=== PATIENT | female | born 1945 | race Caucasian/White ===

== ENCOUNTER 2016-06-16 05:06 | Inpatient (IN) | payer OTHER, MEDICARE ==
[2016-06-11 10:45] LABS: HEMATOCRIT 39.8 % (37.0-47.0); HEMOGLOBIN 13.5 gm/dL (12.0-15.0); MCHC 33.8 % (28.0-37.0); MCV 94.5 fL (80.0-100.0); RBC 4.21 mil/uL (4.20-5.00); RDW 13.7 % (10.5-14.5); WBC 8.5 thou/uL (4.0-11.0)
[2016-06-11 10:52] LABS: URINE BILIRUBIN NEGATIVE (Negative); URINE BLOOD NEGATIVE (Negative); URINE COLOR YELLOW; URINE GLUCOSE-RANDOM* NEGATIVE (Negative); URINE KETONES NEGATIVE (Negative); URINE LEUKOCYTES-REFLEX 2+ (Negative); URINE PROTEIN (DIPSTICK) NEGATIVE (Negative); URINE SPECIFIC GRAVITY <= 1.005 (1.003-1.035); URINE UROBILINOGEN 0.2 E.U./dl (0.2-1.0)
[2016-06-11 10:57] LABS: CASTS None Seen /LPF (None Seen); CRYSTALS None Seen /LPF (None Seen); SQUAMOUS 0-3 Few /LPF (0-3); URINE RBC None Seen /HPF (0-2); URINE WBC-REFLEX 6-15 Few /HPF (0-5)
[2016-06-11 10:59] LABS: APTT 26.1 Seconds (24.5-32.8); PROTIME 10.3 Seconds (9.3-11.4)
[2016-06-11 11:05] LABS: CALCIUM 9.7 mg/dL (8.5-10.1); CREATININE 1.2 mg/dL (0.6-1.3); POTASSIUM 4.6 mmol/L (3.5-5.1); TOTAL BILIRUBIN 0.3 mg/dL (<0.1-1.0); TOTAL PROTEIN 7.8 g/dL (6.4-8.2)
[~2016-06-16] VITALS: Ht 160 cm; Wt 79.4 kg
[2016-06-16] VITALS (9 sets, daily range): BP systolic 87–133; BP diastolic 45–78
--- NOTE | ~2016-06-16 | O ---
[facility] [place] [address] OPERATIVE REPORT Name: ANICETO GARCIA JOEY Room #: 247-P [facility] IN M.R.#: [id number] Admission: 06/16/16 Attend Phys: Uziel Jimenez MD Discharge: 06/18/16 Date of : 47 Report #: [id number] THIS REPORT FOR: //name// CC: WANDA physician/PCP Uziel Jimenez DATE OF SERVICE: 06/16/2016 PREOPERATIVE DIAGNOSIS: Right carotid artery stenosis. POSTOPERATIVE DIAGNOSIS: Right carotid artery stenosis. OPERATION: Right carotid endarterectomy with patch closure. SURGEON: Uziel Jimenez MD. INFORMATION TECHNOLOGY AUDITOR: Daniele. ANESTHESIA: General. INDICATIONS: The patient is a 70-year-old with high-grade right internal carotid stenosis. This is a 90% lesion at the carotid bifurcation, it is asymptomatic. The left carotid has a 60% lesion that is asymptomatic. FINDINGS AND TECHNIQUE: After general anesthesia was established, exposure was obtained through an oblique right neck incision. Common facial vein was divided. Common internal and external carotid arteries were identified and controlled and 10,000 units of heparin were given. Continuous electroencephalographic monitoring was performed during the operation when the carotid vessels were occluded. No EEG changes were noted. The carotid arteriotomy was made. Endarterectomy was performed without creating a distal flap. Neointima was inspected and all loose debris was removed. Tacking sutures were placed at the transition zone. When the endarterectomy was deemed satisfactory, the arteriotomy was closed with thin walled pericardial patch and running Prolene. Prior to finishing the closure, the carotid vessels were backbled and then, the arteriotomy was flushed with heparinized saline. Flow was established first through the external, then the internal carotid artery. 50 mg of protamine was given to reverse the heparin. When hemostasis was satisfactory, wound was irrigated with antibiotic solution. Kalyani drain was brought out through the bottom pole of the incision and the wound was closed in layers with interrupted Vicryl for the platysma and running Monocryl for the [facility] [address] [place] [address] OPERATIVE REPORT Name: ANICETO GARCIA [facility] Room #: [facility] IN .R.#: [id number] Admission: 06/16/16 Attend Phys: Uziel Jimenez MD Discharge: 06/18/16 Date of : 47 Report #: [id number]. The patient tolerated the procedure well and was taken to the recovery area where her neurologic progress was monitored. All counts reported as correct. <ELECTRONICALLY SIGNED> By: Uziel Jimenez MD 06/29/16 1224 [id number] 1520 Uziel Jimenez MD /nt
--- NOTE | ~2016-06-16 | H ---
[facility] [place] [address] HISTORY AND PHYSICAL Name: ANICETO GARCIA Room #: 247-P DIS IN M.R.#: [id number] Admission: 06/16/16 Attend Phys: Uziel Jimenez MD Discharge: 06/18/16 Date of : 47 Report #: [id number] THIS REPORT FOR: //name// For History and Physical, please see office documentation/handwritten note in the patient's medical record. <ELECTRONICALLY SIGNED> By: Uziel Jimenez MD 06/29/16 1224 1552 Uziel Jimenez MD /
--- NOTE | ~2016-06-16 | S ---
[facility] [place] [address] SURGICAL PATH RPT PROCEDURE Name: PEYTON REESE JOEY Room #: 247-P DIS IN M.R.#: [id number] Admission: 06/16/16 Date of : 47 Discharge: 06/18/16 Report #: [id number] Path Case #: [id number] PATHOLOGY REPORT COLLECTION DATE: 06/16/2016 RECEIVED DATE: 06/16/2016 SUBMITTING PHYS: Dr. Uziel Jimenez OTHER PHYS: SPECIMEN(S) RECEIVED: A.Right carotid plaque B.Cervical lymph node * * * * * * * * * * * * FINAL DIAGNOSIS: A. Portion of vessel "right carotid plaque": - Calcified atherosclerotic plaque. B. Lymph node "cervical lymph node": - Reactive lymphoid follicular hyperplasia. - There is no definite evidence of malignancy. COMMENT: This case is also reviewed by Dr. Lisa Lutz. (SHA:all; d/t: 06/18/2016) PATHOLOGIST: Jacinto Boland M.D. REPORT ELECTRONICALLY SIGNED BY: Jacinto Boland M.D. DATE/TIME: 06/18/2016 10:12 * * * * * * * * * * * * GROSS PATHOLOGY: A. The specimen is received in formalin labeled "Peyton Reese, right carotid plaque". Received is a tubular segment of yellow-sullivan, partially calcified plaque measuring 2.0 cm in length by 0.9 cm in diameter. The specimen is submitted representatively in cassette A1, following light decalcification. B. The specimen is received in formalin labeled "Peyton Reese, cervical lymph node". Received is a segment of yellow-sullivan lobulated tissue measuring 2.2 x 1.6 x 1.0 cm in greatest dimensions. Dissection and palpation the specimen reveals two lymph nodes measuring 0.9 and 1.4 cm in maximum dimensions. The lymph nodes are submitted entirely in cassette B1. (CAA; 06/17/2016) CLINICAL HISTORY: [facility] [place] [address] SURGICAL PATH RPT PROCEDURE Name: PEYTON REESE JOEY Room #: 247-P [facility] IN M.R.#: [id number] Admission: 06/16/16 Date of : 47 Discharge: 06/18/16 Report #: [id number] Path Case #: [id number] Carotid artery disease INITIAL CPT CODE(S): A; 69037, 00866 B; 77403 Professional services performed by [facility] at [address] , [place] [address] Technical services performed by [facility] at [address] [place] [address], [facility] [address], [place] [address]. [facility] [place] [address] PHONE: [phone] DIRECTOR: Long Umanzor M.D. * * * END OF REPORT * * *
--- NOTE | ~2016-06-16 | HC ---
[facility] [place] [address] CONSULTATION Name: ANICETO GARCIA JOEY Room #: 247-P [facility] IN M.R.#: [id number] Admission: 06/16/16 Attend Phys: Uziel Jimenez MD Discharge: 06/18/16 Date of : 47 Report #: [id number] THIS REPORT FOR: //name// CC: WANDA physician/PCP Uziel Jimenez DATE OF SERVICE: 06/16/2016 The patient was seen for consultation on 06/16/2016. REQUESTING PHYSICIAN: Uziel Ratliff M.D. REASON FOR CONSULTATION: Medical management. HISTORY OF PRESENT ILLNESS: The patient is a 70-year-old female with history of right carotid stenosis, who underwent elective right carotid endarterectomy today. The patient is recovering well after the procedure. She has minor postop pain, this is controlled with current medications. The patient has history of mild diabetes mellitus type 2. She is on metformin for this. She does not recall her hemoglobin A1c recently, but she states that her blood sugars are usually less than 150 at home. Indeed, the patient's blood sugars have been between 125 and 132, while the patient is here. The patient is hemodynamically stable and afebrile. She denies blurry vision, headaches, chest pain, palpitations or shortness of breath. The patient denies history of coronary artery disease. The patient also has a history of hypertension, which she considers is well controlled. So far, the patient has been hemodynamically stable and afebrile. PAST MEDICAL HISTORY: 1. Hypertension. 2. Depression. 3. Mild diabetes mellitus type 2. 4. Peripheral vascular disease, right carotid stenosis as above. CURRENT MEDICATIONS: Reviewed and documented in the patient's chart. FAMILY HISTORY: Reviewed and not pertinent to the patient's current condition. SOCIAL HISTORY: The patient is a former smoker. She does not drink alcohol. REVIEW OF SYSTEMS: As above in HPI section, all others negative. PHYSICAL EXAMINATION: [facility] [address] [place] [address] CONSULTATION Name: ANICETO GARCIA [facility] Room #: [address] [place] [address] IN M.R.#: [id number] Admission: 06/16/16 Attend Phys: Uziel Jimenez MD Discharge: 06/18/16 Date of : 47 Report #: [id number] GENERAL: The patient is healthy looking elderly female who is in no apparent distress. VITAL SIGNS: Blood pressure is 102/49, from 133/78 earlier. Heart rate is 59, respiration is 15 and temperature is 97.6. HEENT: Pupils are equal. Eye movements are normal. The patient has anicteric sclerae. NECK: Supple. She has no thyromegaly. Site of the right carotid endarterectomy is covered with dressing. CARDIOVASCULAR: The patient has regular rhythm and rate. She has no murmurs, gallops or rubs. RESPIRATORY: Chest moves symmetrically with breathing. Breath sounds are normal bilaterally. GASTROINTESTINAL: Soft, nondistended, and nontender. Bowel sounds are present. The patient has no hepatomegaly or splenomegaly. MUSCULOSKELETAL: There is no edema, cyanosis or clubbing. NEUROLOGIC: Grossly intact. The patient is alert and oriented x 3. SKIN: The patient has no skin lesions. Skin is dry and warm. LABORATORY DATA: Basic metabolic profile and the liver function tests are essentially normal. CBC is completely normal. Urinalysis shows between 6 and 15 white cells, and present bacteria. Nitrite is negative. Leukocyte esterase is positive. ASSESSMENT AND PLAN: 1. Status post right carotid endarterectomy earlier today. The patient is recovering well, and she is managed by primary team. 2. Diabetes mellitus type 2, mild. Blood sugars are mostly acceptable. The patient can be resumed on metformin. There is no need for frequent Accu-Cheks or sliding scale insulin. 3. Hypertension. The patient's home blood pressure medications have been resumed. She is on amlodipine, and spironolactone at this time. We will hold amlodipine, given patient's borderline low blood pressure. 4. Mild urinary tract infection. We will submit urine for culture, and we will treat the patient with Cipro. We will continue to follow the patient during the hospitalization and will provide further recommendations. Once again, we appreciate the opportunity of participating in the care of your patients. <ELECTRONICALLY SIGNED> By: Wilbert Humphrey MD 06/18/16 1638 1733 1837 Wilbert Humphrey MD /nt
[~2016-06-16 05:06] MED LIST: ALDACTONE25 MG PO; ASPIRIN PO; CADUET 5 MG-401 EACH PO; GLUCOPHAGE500 MG PO; LEXAPRO20 MG PO; LIPITOR40 MG PO; NORVASC2.5 MG PO; OMEPRAZOLE 20 M20 M1 PO; PLAVIX 75 MG TA75 MG PO; PREMARIN PO; SIMVASTATIN40 MG PO; VITAMIN D1000 UNIT PO; ZETIA10 MG PO; ZOLOFT PO
[2016-06-17] VITALS (21 sets, daily range): BP systolic 95–136; BP diastolic 47–91
[2016-06-17 06:55] LABS: HEMATOCRIT 30.7 % (37.0-47.0); HEMOGLOBIN 10.3 gm/dL (12.0-15.0); MCH 32.3 pg (26.0-34.0); MCHC 33.5 % (28.0-37.0); MCV 96.4 fL (80.0-100.0); RBC 3.19 mil/uL (4.20-5.00); RDW 14.5 % (10.5-14.5); WBC 9.1 thou/uL (4.0-11.0)
[2016-06-17 07:08] LABS: CALCIUM 8.1 mg/dL (8.5-10.1); POTASSIUM 4.2 mmol/L (3.5-5.1)
[2016-06-18 00:28] VITALS: BP 109/46
[2016-06-18 04:00] VITALS: BP 98/50
[2016-06-18 08:00] VITALS: BP 123/54
[2016-06-18 09:38] VITALS: BP 98/50
[2016-06-18 10:00] VITALS: BP 133/57
== END 2016-06-18 10:25 | disposition home or self-care (01) | DRG 38 ==
LOC: EDSEX → ICU 05:06 → TBA 05:06 → PRE 09:01 → ICU 13:05 → PRE 14:59 → ICU 06-18 10:25
PROVIDERS: Physician Assistant; Surgery Vascular Surgery
PROC: 03CH0ZZ Extirpation of Matter from Right Common Carotid Artery, Open Approach (ICD-10-PCS; principal; 2016-06-16)
PROC: 4A00X4Z Measurement of Central Nervous Electrical Activity, External Approach (ICD-10-PCS; 2016-06-16)
PROC: 03UH07Z Supplement Right Common Carotid Artery with Autologous Tissue Substitute, Open Approach (ICD-10-PCS; 2016-06-16)
DX: I65.21 Occlusion and stenosis of right carotid artery (principal); N39.0 Urinary tract infection, site not specified; G89.18 Other acute postprocedural pain; I10 Essential (primary) hypertension; F32.9 Major depressive disorder, single episode, unspecified; E11.51 Type 2 diabetes mellitus with diabetic peripheral angiopathy without gangrene; Z87.891 Personal history of nicotine dependence; E78.5 Hyperlipidemia, unspecified; Z79.2 Long term (current) use of antibiotics; Z88.2 Allergy status to sulfonamides; Z88.8 Allergy status to other drugs, medicaments and biological substances; I25.10 Atherosclerotic heart disease of native coronary artery without angina pectoris
CPT/HCPCS: 10078; 48888; 50010; 50101; 50386; 50417; 50455; 51301; 51751; 52279; 54118; 56524; 56526; 56527; 56528; 56534; 62110; 62900; 65020; 65043; 70005

== ENCOUNTER → 2017-07-12 | Outpatient (CLI) | payer OTHER, MEDICARE | LOC: ULTRA 12:34 | DX: N28.1 Cyst of kidney, acquired (principal); N39.0 Urinary tract infection, site not specified; I10 Essential (primary) hypertension; E11.51 Type 2 diabetes mellitus with diabetic peripheral angiopathy without gangrene; E78.5 Hyperlipidemia, unspecified; I25.10 Atherosclerotic heart disease of native coronary artery without angina pectoris; Z87.891 Personal history of nicotine dependence ==

== ENCOUNTER → 2019-09-14 | Outpatient (CLI) | payer OTHER, MEDICARE | LOC: SJCVCIMAG 10:50 | DX: I65.23 Occlusion and stenosis of bilateral carotid arteries (principal); I73.9 Peripheral vascular disease, unspecified; I10 Essential (primary) hypertension; I25.10 Atherosclerotic heart disease of native coronary artery without angina pectoris; E78.00 Pure hypercholesterolemia, unspecified; E11.9 Type 2 diabetes mellitus without complications; Z79.899 Other long term (current) drug therapy; Z82.49 Family history of ischemic heart disease and other diseases of the circulatory system; Z87.891 Personal history of nicotine dependence; Z98.890 Other specified postprocedural states; Z86.79 Personal history of other diseases of the circulatory system; Z95.820 Peripheral vascular angioplasty status with implants and grafts ==

== ENCOUNTER → 2019-09-15 | Outpatient (CLI) | payer OTHER, MEDICARE | LOC: SJCVCIMAG 09:52 | DX: I08.1 Rheumatic disorders of both mitral and tricuspid valves (principal); E11.51 Type 2 diabetes mellitus with diabetic peripheral angiopathy without gangrene; I25.10 Atherosclerotic heart disease of native coronary artery without angina pectoris; I10 Essential (primary) hypertension; E78.00 Pure hypercholesterolemia, unspecified; E78.5 Hyperlipidemia, unspecified; Z98.890 Other specified postprocedural states; Z86.79 Personal history of other diseases of the circulatory system; Z79.899 Other long term (current) drug therapy; Z88.2 Allergy status to sulfonamides ==

== ENCOUNTER → 2020-09-03 | Outpatient (CLI) | payer OTHER, MEDICARE | LOC: SJCVCIMAG 12:22 → SJCVC 12:22 | PROVIDERS: ATTEND Internal Medicine Cardiovascular Disease | DX: R94.31 Abnormal electrocardiogram [ECG] [EKG] (principal); I65.23 Occlusion and stenosis of bilateral carotid arteries; E11.51 Type 2 diabetes mellitus with diabetic peripheral angiopathy without gangrene; E78.00 Pure hypercholesterolemia, unspecified; I71.4 Abdominal aortic aneurysm, without rupture; I25.10 Atherosclerotic heart disease of native coronary artery without angina pectoris; Z98.890 Other specified postprocedural states; Z86.79 Personal history of other diseases of the circulatory system; Z88.2 Allergy status to sulfonamides; Z79.899 Other long term (current) drug therapy; Z87.891 Personal history of nicotine dependence; Z72.89 Other problems related to lifestyle ==

== ENCOUNTER → 2020-11-25 | Outpatient (CLI) | payer OTHER, MEDICARE | LOC: MRI 13:59 | PROVIDERS: ATTEND Nurse Practitioner | DX: M47.22 Other spondylosis with radiculopathy, cervical region (principal); M48.02 Spinal stenosis, cervical region; M50.123 Cervical disc disorder at C6-C7 level with radiculopathy; Q05.5 Cervical spina bifida without hydrocephalus ==

== ENCOUNTER → 2020-12-24 | Outpatient (CLI) | payer OTHER, MEDICARE ==
[~2020-12-24] VITALS: Ht 162.6 cm; Wt 70.3 kg
[~2020-12-24] MED LIST changes: +DULOXETINE HCL60 MG PO; +METFORMIN HCL500 M3 PO; +NON-ASPIRIN EX500 M1 PO; +XALATAN2.5 ML OPHTHALMIC; +ZANAFLEX4 M1 PO
--- NOTE | ~2020-12-24 | HPC ---
[facility] [place] [address] PAIN MANAGEMENT CONSULTATION Name: ANICETO GARCIA JOEY Room #: REG DIPIKA JerzyKj.#: [id number] Admission: 12/24/20 Attend Phys: Terry Curiel DO Discharge: Date of : 47 Report #: [id number] THIS REPORT FOR: cc: Oliver Vaughan MD, Neal A. MD Johnson, James E. DO ~ cc: Roel Esteves DATE OF SERVICE: 12/24/2020 CHIEF COMPLAINT: Right upper extremity pain. HISTORY OF PRESENT ILLNESS: As you know, the patient is a 75-year-old female reporting acute onset of right upper extremity pain that began on 11/09/2020. The patient denies any specific injury or trauma. She indicates pain began and progressively worsened over a period of about 2 weeks. She trialed conservative treatment options initially trialing [id number] medications, rest and relaxation. Unfortunately, this did not provide much in the way of improvement. She states that symptoms began with a stiff neck upon arising from sleep. She denied any previous conditions involving cervical spine or right upper extremity. She sought evaluation through her primary care team who sent the patient on for MRI of the cervical spine, which was obtained 11/25/2020. There was severe right neural foraminal stenosis noted at the C3-C4 and C5-C6 levels and the patient was subsequently referred to our clinic to discuss interventional treatment options. The patient reports today her pain is intermittent. She describes the pain as sharp, numbness and tingling. She places pain today at 0/10, daily average at 2-3/10, worst pain has been 8/10. The patient is unable to describe what makes her symptoms worse. Pain is improved with sleep. She has been taking naproxen, but has noticed no improvement. She was referred to our clinic to discuss interventional treatment options to address suspected cervical radiculopathy. PAST MEDICAL HISTORY: 1. Coronary artery disease. 2. Carotid artery stenosis. 3. Diabetes mellitus. 4. History of abdominal aortic aneurysm. 5. Hypertension. 6. Hypercholesterolemia. PAST SURGICAL HISTORY: 1. Aortic bifurcation stent grafting. 2. Carotid endarterectomy. 3. Foot surgery. 4. Hysterectomy. 5. Reduction mammoplasty. [address] [address] PAIN MANAGEMENT CONSULTATION Name: ANICETO GARCIA [facility] Room #: REG Kamar Carrion#: [id number] Admission: 12/24/20 Attend Phys: Terry Curiel DO Discharge: Date of : 47 Report #: [id number] SOCIAL HISTORY: The patient denies tobacco, alcohol or IV or illicit drug use. She is retired, retired years ago, not receiving workmen's compensation nor is trying to obtain disability benefits. She is not in litigation in regards to pain. She is unaccompanied at today's visit. REVIEW OF SYSTEMS: Positive for night sweats, eye disease, wearing corrective eyewear, cataracts, nocturia, numbness and tingling sensations involving the right upper extremity, tremors of the right upper extremity, depression, diabetes mellitus type 2, heat and cold intolerance, bleeding and bruising tendencies. All other review of systems negative per 12-point review of systems other than those listed in history of present illness. Pain impact score 21/70 indicating mild to moderate impact on daily activity. ALLERGIES: SULFA AND ADHESIVE TAPES. CURRENT MEDICATIONS: Plavix 75 mg once a day, atorvastatin 40 mg per day, omeprazole 20 mg per day, Zetia 10 mg per day, cholecalciferol 1000 units per day, duloxetine 60 mg once a day, metformin 500 mg once a day, tizanidine 4 mg p.r.n., acetaminophen 500 mg t.i.d., Latanoprost one drop each eye per day. IMAGING: MRI cervical spine obtained 11/25/2020 shows severe right neural foraminal stenosis at C3-C4 and C5-C6 secondary to prominent uncovertebral joint and facet hypertrophy. Remaining findings are age-related and the cervical spine. PQRS: The patient has known arthritic changes of the cervical spine, bilateral shoulders and lumbar spine. No rheumatoid arthritis. She is placing current pain score anywhere from 0-9/10 depending on activity. She is not a fall risk, has not had a fall in last 3 months. She is on blood thinners and currently taking Plavix. She is treated for hypertension. She is not on chronic opioids, has a low opioid addiction potential based on assessment tool. Pain impact is 21/70, mild to moderate interference of daily activities secondary to pain. PHYSICAL EXAMINATION: VITAL SIGNS: Blood pressure 157/98, pulse is 70, respiratory rate 14 and unlabored. The patient is 96% on room air. Height 5 feet 4 inches tall, weight 155 pounds, BMI calculated 26.6. GENERAL: Well-developed, well-nourished, well-hydrated 75-year-old female appearing her stated age. She is somewhat emotionally labile today. Rating pain anywhere from 0-9/10. HEENT: Normocephalic, atraumatic. Pupils equal, round and responsive. The patient is deemed a fair historian. She is wearing a mask in compliance with COVID-19 regulations. LUNGS: Clear. No wheeze, rhonchi or rales. [facility] [address] [place] [address] PAIN MANAGEMENT CONSULTATION Name: ANICETO GARCIA JOEY Room #: REG Kamar Alec.#: [id number] Admission: 12/24/20 Attend Phys: Terry Curiel DO Discharge: Date of : 47 Report #: [id number] CARDIOVASCULAR: Regular. No appreciable gallop, no rub. ABDOMEN: Soft. EXTREMITIES: Show no clubbing, no cyanosis and no edema. MUSCULOSKELETAL: Upper extremity strength equal and symmetrical 5/5. Slight giveaway strength noted with biceps flexion on the right compared to left. Pain is generated with this maneuver. Spurling's test is positive right, negative left. Muscle bulk and tone is equal and symmetrical in the upper extremities. Deep tendon reflexes are symmetrical at biceps, brachialis and triceps bilaterally. Cervical provocation testing is met with slight increase in axial neck pain with rotation, lateral flexion to the right, negative left. ASSESSMENT: 1. Cervical radiculopathy. 2. Severe neural foraminal stenosis of the cervical spine. 3. Cervical facet arthropathy with radiculopathy. 4. Chronic neck pain. PLAN: 1. Based on today's physical exam and history the patient has provided, the description the patient uses in regards to pain as well as distribution of symptoms, likely source of the patient's symptoms is cervical radiculopathy. We have discussed with the patient the findings of her MRI correlating them to her current distribution of pain, which correlates to the C5 dermatome on the right consistent with the findings of this MRI. After that discussion, we discussed the treatment options we have available. Following was discussed with the patient today. We discussed physical therapy, stretching exercises and traction techniques as a treatment approach. We discussed medication management utilizing neuropathic medications such as amitriptyline, nortriptyline, Cymbalta, Lyrica and gabapentin. It is noted the patient is on Cymbalta at 60 mg dose, which is providing benefit from a depressant standpoint, but is having no significant effect on neuropathic pain, which requires 90-120 mg a day. We discussed cervical epidural injections for which the patient was referred to our clinic and ultimately surgical options. The patient chose to make no adjustments in medication management and is resistant to look towards a cervical epidural injection. She is not looking toward surgical options. 2. The patient is resistant to undergo a cervical epidural injection and thus, we will not provide that as a treatment option. She does not wish to look toward surgical options and we have discontinued that potential course of treatment. This leaves us with suggestions and treatment from a neuropathic standpoint following will be helpful in directing her care. 3. The patient could increase her Cymbalta from 60 mg to 120 mg b.i.d. This will provide improvement in analgesic benefit from neuropathic standpoint as it does increase the norepinephrine reuptake inhibition from the duloxetine molecule. One can certainly increase that medication. Other alternatives would be add Lyrica or possibly gabapentin to the mix of medication. This could be [address] [address] PAIN MANAGEMENT CONSULTATION Name: ANICETO GARCIA Room #: REG DIPIKA Carrion#: [id number] Admission: 12/24/20 Attend Phys: Terry Curiel DO Discharge: Date of : 47 Report #: [id number] done on a typical titration. If you have questions in regards to that, she can contact our clinic. 4. The patient chose to follow up with her PCP. She does not wish interventional therapies through our services. Would recommend if the patient continues to experience symptoms, a referral on to neurosurgery for decompression of the neural foramen at C3-C4 and C5-C6. We wish to thank nurse practitioner, Roel Esteves, for the opportunity to see the patient in consultation. We will be returning the patient's care to your capable services, but will be available if the patient changes her mind and wishes to undergo a cervical epidural injection. Adjustments in medication management is what she wishes to discuss with her PCP before thinking of more aggressive treatments. Again, we wish to thank you for the opportunity to see this patient in consultation. By: [id number] Terry Curiel DO /eugene
[2020-12-24 13:03] VITALS: BP 157/98
--- NOTE | 2020-12-24 13:35 | NUR ---
Pain Clinic Assessment: 1. History of Osteoarthritis: SPINE History of Rheumatoid Arthritis: Not Applicable 2. Height: 5 ft. 4 in. 162.6 cm. Weight: 155.0 lb. oz. 70.308 kg. Patient's BMI: 26.6 3. Vital Signs: BP: 157/98 Pulse: 70 Resp: 14 Temp: 02 Sat: 96 ECG Mon: 4. Pain Intensity: 8-9 5. Fall Risk: Dizziness: N Needs help standing or walking: N Fallen in the last 3 months: N Fall risk comments: 6. Patient on Blood Thinner: Clopidogrel Bisulf(Plavix 7. History of Hypertension: Y 8. Opioid Therapy greater than 6 weeks: N Opiate Contract Signed: 9. Risk Assessment Tool Provided: low-0 10. Functional Assessment Tool: 11. Recreational Drug Use: Never Drug Type: Tobacco Use: Never Smoker Tobacco Type: Amount or Packs/day: How Many Years: Alcohol Use: No Frequency: Quant:
== END ==
LOC: PAIN 08:59
PROVIDERS: ATTEND Anesthesiology Pain Medicine
DX: M48.02 Spinal stenosis, cervical region (principal); M47.22 Other spondylosis with radiculopathy, cervical region; G89.29 Other chronic pain; Z79.899 Other long term (current) drug therapy; Z79.891 Long term (current) use of opiate analgesic